=== PATIENT | male | born 1940 | race Caucasian/White ===

== ENCOUNTER → 2021-06-14 | Day surgery (SDC) | payer MEDICARE, OTHER ==
[2021-06-13 11:23] VITALS: BMI 34.4
[2021-06-14 08:54] VITALS: BP 145/76; PULSE 65; TEMP 97.6
== END | disposition home or self-care (01) ==
LOC: FASUSAT 08:26 → EDSTATUS 10:30
PROVIDERS: ATTEND Orthopaedic Surgery Orthopaedic Surgery of the Spine
PROC: 0SRC0J9 Replacement of Right Knee Joint with Synthetic Substitute, Cemented, Open Approach (ICD-10-PCS; principal; 2021-06-14)
DX: Z53.09 Procedure and treatment not carried out because of other contraindication (principal); M17.11 Unilateral primary osteoarthritis, right knee

== ENCOUNTER 2021-08-23 06:14 | Day surgery (SDC) | payer OTHER ==
[2021-08-23 06:51] VITALS: BMI 31.5
[2021-08-23] MEDS ORDERED: PROPOFOL 20 ML ONE ×4 (07:31→10:52)
[2021-08-23] MEDS ORDERED: MIDAZOLAM HCL 2 MG/2 ML SINGLE DOSE VIAL ONE (07:31)
[2021-08-23] MEDS ORDERED: BUPIVACAINE HCL 150 ML ONE (07:40)
[2021-08-23] MEDS ORDERED: BUPIVACAINE LIPOSOME/PF (EXPAREL) 266 MG/20 ML VIAL ONE (07:42)
[2021-08-23] MEDS ORDERED: BUPIVACAINE HCL 50 ML ONE (08:14)
[2021-08-23] MEDS ORDERED: PHENYLEPHRINE HCL 10 MG/1 ML SINGLE DOSE VIAL ONE (08:15)
[2021-08-23] MEDS ORDERED: DEXAMETHASONE SOD PHOSPHATE 4 MG/1 ML VIAL ONE (10:50)
[2021-08-23] MEDS ORDERED: ONDANSETRON 4 MG/2 ML VIAL ONE (10:50)
[2021-08-23] MEDS ORDERED: EPINEPHrine/PF 1 MG/1 ML (1:1,000) AMPULE ONE (10:50)
[2021-08-23] MEDS ORDERED: MAGNESIUM HYDROX 2400MG/30ML ORAL SUSPENSION 30 ML CUP PO PRN (12:05)
[2021-08-23] MEDS ORDERED: ONDANSETRON 4 MG/2 ML VIAL IVPUSH PRN ×3 (12:05→12:41)
[2021-08-23] MEDS ORDERED: MAG HYDROX/AL HYDROX/SIMETH 30 ML UNIT-DOSE CUP PO PRN (12:05)
[2021-08-23] MEDS ORDERED: LACTATED RINGERS SOLUTION 1,000 ML IV SCH (12:15)
[2021-08-23] MEDS ORDERED: oxyCODONE HCL 5 MG TABLET PO PRN (12:39)
[2021-08-23] MEDS ORDERED: ACETAMINOPHEN INJECTION 100 ML IVPB ONE (12:48)
[2021-08-23] MEDS: ACETAMINOPHEN 1000 MG/100 ML BAG IVPB ONE ×2 (13:01→14:09)
[2021-08-23] MEDS ORDERED: ceFAZolin SODIUM 1 GM VIAL ONE ×2 (17:09→22:19)
[2021-08-23] MEDS ORDERED: DEXTROSE 5%-WATER - 50 ML IVPB ONE ×2 (17:10→22:20)
[2021-08-23] MEDS: CEFAZOLIN 2 GM in DEXTROSE 5%-WATER - 50 ML IVPB SCH ×2 (17:12→22:25)
[2021-08-23] MEDS: oxyCODONE HCL 5 MG TABLET PO PRN (19:41)
[2021-08-23] MEDS: ACETAMINOPHEN 500 MG TABLET (FP) PO SCH (21:31)
[2021-08-23] MEDS: SENNOSIDES/DOCUSATE COMBO (SENNA PLUS) TABLET (UD) PO SCH (21:36)
[2021-08-23] MEDS: ENOXAPARIN NA (PORCINE) 30 MG/0.3 ML DISP.SYRIN SQ SCH (21:37)
[2021-08-23] MEDS ORDERED: traMADol HCL 50 MG TABLET PO ONE (23:49)
[2021-08-24] MEDS: ACETAMINOPHEN 500 MG TABLET (FP) PO SCH ×4 (02:16→21:08)
[2021-08-24] MEDS: oxyCODONE HCL 5 MG TABLET PO PRN ×2 (02:17→09:40)
[2021-08-24] MEDS ORDERED: DEXTROSE 5%-WATER - 50 ML IVPB ONE (05:19)
[2021-08-24] MEDS ORDERED: ceFAZolin SODIUM 1 GM VIAL ONE (05:19)
[2021-08-24] MEDS: CEFAZOLIN 2 GM in DEXTROSE 5%-WATER - 50 ML IVPB SCH (05:32)
[2021-08-24 08:14] LABS: CALCIUM 8.8 mg/dl (8.5-10); CREATININE 0.8 mg/dl (0.55-1.3)
[2021-08-24 09:27] LABS: HEMATOCRIT 32.6 % (35.4-49); HEMOGLOBIN 10.9 GM/dL (11.7-16.9); MCH 28.8 pg (25.7-33.7); MCHC 33.3 g/dl (32.0-35.9); MEAN CELL VOLUME 86.6 fl (80-96); MEAN PLT VOLUME 9.8 fl (7.5-11.1); PLATELET COUNT 163 10^3/uL (134-434); RBC 3.76 M/mm3 (4.00-5.60); RDW 14.6 % (11.9-15.9); WHITE BLOOD COUNT 8.3 K/mm3 (4.0-10.0)
[2021-08-24] MEDS: FUROSEMIDE 20 MG TABLET (FP) PO SCH (09:39)
[2021-08-24] MEDS: SENNOSIDES/DOCUSATE COMBO (SENNA PLUS) TABLET (UD) PO SCH ×2 (09:39→21:08)
[2021-08-24] MEDS: LOSARTAN POTASSIUM 50 MG TABLET PO SCH (09:40)
[2021-08-24] MEDS: ENOXAPARIN NA (PORCINE) 30 MG/0.3 ML DISP.SYRIN SQ SCH ×2 (09:40→21:12)
[2021-08-24] MEDS: PANTOPRAZOLE 40 MG TABLET PO SCH (09:40)
[2021-08-24] MEDS: amLODIPine BESYLATE 2.5 MG TABLET (FP) PO SCH (09:40)
[2021-08-24] MEDS ORDERED: PANTOPRAZOLE 40 MG TABLET PO SCH (10:00)
[2021-08-24] MEDS ORDERED: ERGOCALCIFEROL (VIT D2) 50,000 UNIT (1.25 MG) CAPSULE PO SCH (10:00)
[2021-08-24] MEDS ORDERED: amLODIPine BESYLATE 10 MG TABLET (FP) PO SCH ×2 (10:00)
[2021-08-24] MEDS ORDERED: CELECOXIB 200 MG CAPSULE PO SCH ×2 (10:00)
[2021-08-24] MEDS: TRIAMCINOLONE ACET 0.1% CREAM 15 GM TUBE TP SCH (11:23)
[2021-08-24] MEDS: ATORVASTATIN CA 20 MG TABLET (FP) PO SCH (21:08)
[2021-08-25] MEDS: ACETAMINOPHEN 500 MG TABLET (FP) PO SCH ×4 (03:00→22:02)
[2021-08-25 08:23] LABS: HEMATOCRIT 29.2 % (35.4-49); MCH 29.4 pg (25.7-33.7); MCHC 34.2 g/dl (32.0-35.9); MEAN PLT VOLUME 9.6 fl (7.5-11.1); PLATELET COUNT 142 10^3/uL (134-434); RDW 14.6 % (11.9-15.9); WHITE BLOOD COUNT 7.2 K/mm3 (4.0-10.0)
[2021-08-25] MEDS: ENOXAPARIN NA (PORCINE) 30 MG/0.3 ML DISP.SYRIN SQ SCH ×2 (09:04→22:03)
[2021-08-25] MEDS: LOSARTAN POTASSIUM 50 MG TABLET PO SCH (09:04)
[2021-08-25] MEDS: amLODIPine BESYLATE 2.5 MG TABLET (FP) PO SCH (09:05)
[2021-08-25] MEDS: FUROSEMIDE 20 MG TABLET (FP) PO SCH (09:05)
[2021-08-25] MEDS: PANTOPRAZOLE 40 MG TABLET PO SCH (09:05)
[2021-08-25] MEDS: oxyCODONE HCL 5 MG TABLET PO PRN ×2 (09:05→14:15)
[2021-08-25] MEDS: SENNOSIDES/DOCUSATE COMBO (SENNA PLUS) TABLET (UD) PO SCH ×2 (09:05→22:03)
[2021-08-25] MEDS: TRIAMCINOLONE ACET 0.1% CREAM 15 GM TUBE TP SCH (09:11)
[2021-08-25] MEDS: ATORVASTATIN CA 20 MG TABLET (FP) PO SCH (22:03)
[2021-08-26] MEDS: ACETAMINOPHEN 500 MG TABLET (FP) PO SCH ×3 (03:10→14:59)
[2021-08-26 09:58] LABS: HEMATOCRIT 27.3 % (35.4-49); HEMOGLOBIN 9.5 GM/dL (11.7-16.9); MCH 29.6 pg (25.7-33.7); MCHC 34.7 g/dl (32.0-35.9); MEAN CELL VOLUME 85.5 fl (80-96); MEAN PLT VOLUME 9.6 fl (7.5-11.1); PLATELET COUNT 145 10^3/uL (134-434); RDW 14.4 % (11.9-15.9); WHITE BLOOD COUNT 7.4 K/mm3 (4.0-10.0)
[2021-08-26] MEDS: oxyCODONE HCL 5 MG TABLET PO PRN (09:59)
[2021-08-26] MEDS: FUROSEMIDE 20 MG TABLET (FP) PO SCH (09:59)
[2021-08-26] MEDS: PANTOPRAZOLE 40 MG TABLET PO SCH (09:59)
[2021-08-26] MEDS: LOSARTAN POTASSIUM 50 MG TABLET PO SCH (10:00)
[2021-08-26] MEDS: SENNOSIDES/DOCUSATE COMBO (SENNA PLUS) TABLET (UD) PO SCH (10:00)
[2021-08-26] MEDS: amLODIPine BESYLATE 2.5 MG TABLET (FP) PO SCH (10:00)
[2021-08-26] MEDS: TRIAMCINOLONE ACET 0.1% CREAM 15 GM TUBE TP SCH (10:03)
[2021-08-26] MEDS: ENOXAPARIN NA (PORCINE) 30 MG/0.3 ML DISP.SYRIN SQ SCH (10:03)
[2021-08-26 14:39] VITALS: BP 101/57; PULSE 57; TEMP 99.2
== END 2021-08-26 16:48 | disposition home health service (06) ==
LOC: FASUSAT 06:14 → EDSTATUS 08:00 → FM/S 13:15 → FASUSAT 08-26 16:48
PROVIDERS: ATTEND Orthopaedic Surgery Orthopaedic Surgery of the Spine
PROC: 0SRC0J9 Replacement of Right Knee Joint with Synthetic Substitute, Cemented, Open Approach (ICD-10-PCS; principal; 2021-08-23 09:19)
DX: M17.11 Unilateral primary osteoarthritis, right knee (principal)
CPT/HCPCS: 27447; C1776; 36415; 73560-TC-RT-FY; 80048; 85027; 88305-TC; 88311-TC; 94760; 97010-GP; 97116-GP; 97163-GP

== ENCOUNTER 2022-03-07 06:11 | Inpatient (IN) | payer OTHER ==
[2022-03-06 10:27] VITALS: BMI 31.5
[2022-03-07] MEDS ORDERED: DEXAMETHASONE SOD PHOSPHATE/PF 10 MG/ML SDV ONE (07:19)
[2022-03-07] MEDS ORDERED: ROPIVACAINE HCL 0.5% 30ML VIAL ONE (07:19)
[2022-03-07] MEDS ORDERED: BUPIVACAINE HCL 50 ML ONE ×2 (07:22→07:33)
[2022-03-07] MEDS ORDERED: MIDAZOLAM HCL 2 MG/2 ML SINGLE DOSE VIAL ONE ×2 (07:26→08:47)
[2022-03-07] MEDS ORDERED: PROPOFOL 40 ML ONE (07:26)
[2022-03-07] MEDS ORDERED: BUPIVACAINE LIPOSOME/PF (EXPAREL) 266 MG/20 ML VIAL ONE (07:33)
[2022-03-07] MEDS ORDERED: TRANEXAMIC ACID 1000 MG/10 ML VIAL ONE ×2 (08:47→11:06)
[2022-03-07] MEDS ORDERED: DEXAMETHASONE SOD PHOSPHATE 4 MG/1 ML VIAL ONE (08:47)
[2022-03-07] MEDS ORDERED: VANCOMYCIN 1,000 MG VIAL (RESTRICTED TO ID ONLY) ONE (08:47)
[2022-03-07] MEDS ORDERED: ceFAZolin SODIUM 1 GM VIAL ONE ×2 (08:47→11:06)
[2022-03-07] MEDS ORDERED: KETOROLAC TROMETHAMINE 30 MG/1 ML VIAL ONE (08:47)
[2022-03-07] MEDS ORDERED: ONDANSETRON 4 MG/2 ML VIAL ONE (08:47)
[2022-03-07] MEDS ORDERED: ONDANSETRON 4 MG/2 ML VIAL IVPUSH PRN ×2 (11:47→12:00)
[2022-03-07] MEDS ORDERED: MAGNESIUM HYDROX 2400MG/30ML ORAL SUSPENSION 30 ML CUP PO PRN (11:47)
[2022-03-07] MEDS ORDERED: MAG HYDROX/AL HYDROX/SIMETH 30 ML UNIT-DOSE CUP PO PRN (11:47)
[2022-03-07] MEDS ORDERED: LACTATED RINGERS SOLUTION 1,000 ML IV SCH (12:00)
[2022-03-07] MEDS ORDERED: oxyCODONE HCL 5 MG TABLET PO PRN ×2 (12:00)
[2022-03-07] MEDS ORDERED: KETOROLAC TROMETHAMINE 30 MG/1 ML VIAL IVPUSH SCH (12:00)
[2022-03-07] MEDS ORDERED: ACETAMINOPHEN 1000 MG/100 ML BAG IVPB ONE (12:00)
[2022-03-07] MEDS ORDERED: ACETAMINOPHEN INJECTION 100 ML IVPB ONE (12:10)
[2022-03-07] MEDS: LACTATED RINGERS SOLUTION 1,000 ML IV SCH ×2 (16:11→16:56)
[2022-03-07] MEDS: CEFAZOLIN SODIUM 2 GM in DEXTROSE 5%-WATER 100 ML IVPB SCH ×2 (17:48→23:37)
[2022-03-07] MEDS: KETOROLAC TROMETHAMINE 30 MG/1 ML VIAL IVPUSH SCH (17:48)
[2022-03-07] MEDS: ACETAMINOPHEN 500 MG TABLET (FP) PO SCH (20:38)
[2022-03-07] MEDS: ENOXAPARIN NA (PORCINE) 30 MG/0.3 ML DISP.SYRIN SQ SCH (23:20)
[2022-03-07] MEDS: GABAPENTIN 300 MG CAPSULE PO SCH (23:37)
[2022-03-07] MEDS: oxyCODONE HCL 10 MG SUSTAINED ACTING TABLET PO SCH (23:38)
[2022-03-07] MEDS: SENNOSIDES/DOCUSATE COMBO (SENNA PLUS) TABLET (UD) PO SCH (23:38)
[2022-03-08] MEDS: ACETAMINOPHEN 500 MG TABLET (FP) PO SCH ×4 (03:09→21:03)
[2022-03-08] MEDS: KETOROLAC TROMETHAMINE 30 MG/1 ML VIAL IVPUSH SCH (03:10)
[2022-03-08] MEDS: CEFAZOLIN SODIUM 2 GM in DEXTROSE 5%-WATER 100 ML IVPB SCH (05:35)
[2022-03-08 08:16] LABS: CALCIUM 8.7 mg/dl (8.5-10)
[2022-03-08 08:23] LABS: HEMOGLOBIN 10.4 G/dL (11.7-16.9); MCH 30.3 pg (25.7-33.7); MCHC 34.8 g/dl (32.0-35.9); MEAN CELL VOLUME 87.3 fl (80-96); MEAN PLT VOLUME 9.6 fl (7.5-11.1); PLATELET COUNT 171.1 10^3/uL (134-434); RBC 3.44 10^6/uL (4.00-5.60); RDW 15.2 % (11.9-15.9); WHITE BLOOD COUNT 7.3 10^3/uL (4.0-10.8)
[2022-03-08] MEDS: PANTOPRAZOLE 40 MG TABLET PO SCH (09:37)
[2022-03-08] MEDS: oxyCODONE HCL 10 MG SUSTAINED ACTING TABLET PO SCH ×2 (09:37→21:04)
[2022-03-08] MEDS: ENOXAPARIN NA (PORCINE) 30 MG/0.3 ML DISP.SYRIN SQ SCH ×2 (09:37→20:59)
[2022-03-08] MEDS: GABAPENTIN 300 MG CAPSULE PO SCH ×2 (09:37→20:59)
[2022-03-08] MEDS: FUROSEMIDE 20 MG TABLET (FP) PO SCH (09:37)
[2022-03-08] MEDS: amLODIPine BESYLATE 5 MG TABLET (FP) PO SCH (09:38)
[2022-03-08] MEDS: SENNOSIDES/DOCUSATE COMBO (SENNA PLUS) TABLET (UD) PO SCH ×2 (09:38→21:03)
[2022-03-08] MEDS: LOSARTAN POTASSIUM 50 MG TABLET PO SCH (09:38)
[2022-03-08] MEDS: CHOLECALCIFEROL (VIT D3 5000 UNITS) 125 MCG TAB PO SCH (09:39)
[2022-03-08] MEDS: ATORVASTATIN CA 20 MG TABLET (FP) PO SCH (21:01)
[2022-03-09] MEDS: ACETAMINOPHEN 500 MG TABLET (FP) PO SCH ×4 (03:00→21:06)
[2022-03-09 08:36] LABS: ALBUMIN 2.7 g/dl (3.4-5.0); BILIRUBIN,TOTAL 1.3 mg/dl (0.2-1); CALCIUM 8.3 mg/dl (8.5-10); CREATININE 0.8 mg/dl (0.55-1.3); TOT PROT 5.3 g/dl (6.4-8.2)
[2022-03-09] MEDS: SENNOSIDES/DOCUSATE COMBO (SENNA PLUS) TABLET (UD) PO SCH ×2 (09:35→21:07)
[2022-03-09] MEDS: FUROSEMIDE 20 MG TABLET (FP) PO SCH (09:36)
[2022-03-09] MEDS: PANTOPRAZOLE 40 MG TABLET PO SCH (09:38)
[2022-03-09] MEDS: GABAPENTIN 300 MG CAPSULE PO SCH ×2 (09:38→21:06)
[2022-03-09] MEDS: ENOXAPARIN NA (PORCINE) 30 MG/0.3 ML DISP.SYRIN SQ SCH ×2 (09:38→21:07)
[2022-03-09] MEDS: LOSARTAN POTASSIUM 50 MG TABLET PO SCH (09:41)
[2022-03-09] MEDS: amLODIPine BESYLATE 5 MG TABLET (FP) PO SCH (09:41)
[2022-03-09] MEDS: CHOLECALCIFEROL (VIT D3 5000 UNITS) 125 MCG TAB PO SCH (09:44)
[2022-03-09] MEDS: oxyCODONE HCL 10 MG SUSTAINED ACTING TABLET PO SCH ×2 (09:52→21:07)
[2022-03-09 10:30] LABS: BASO % 0.4 % (0-2.0); EOS % 5.2 % (0-4.5); HEMATOCRIT 26.3 % (35.4-49); HEMOGLOBIN 8.7 GM/dL (11.7-16.9); LYMPH % 7.6 % (8-40); MCH 28.4 pg (25.7-33.7); MCHC 33.3 g/dl (32.0-35.9); MEAN CELL VOLUME 85.3 fl (80-96); MEAN PLT VOLUME 10.1 fl (7.5-11.1); MONO % 10.4 % (3.8-10.2); NEUT % 76.4 % (42.8-82.8); PLATELET COUNT 153 10^3/uL (134-434); RBC 3.08 M/mm3 (4.00-5.60); RDW 15.5 % (11.9-15.9); WHITE BLOOD COUNT 7.2 K/mm3 (4.0-10.0)
[2022-03-09] MEDS: ATORVASTATIN CA 20 MG TABLET (FP) PO SCH (21:06)
[2022-03-10] MEDS: ACETAMINOPHEN 500 MG TABLET (FP) PO SCH ×2 (03:50→09:47)
[2022-03-10] MEDS: ENOXAPARIN NA (PORCINE) 30 MG/0.3 ML DISP.SYRIN SQ SCH (09:45)
[2022-03-10 09:46] LABS: HEMATOCRIT 26.5 % (35.4-49); HEMOGLOBIN 9.1 G/dL (11.7-16.9); MCH 29.8 pg (25.7-33.7); MCHC 34.2 g/dl (32.0-35.9); MEAN CELL VOLUME 87.1 fl (80-96); MEAN PLT VOLUME 9.4 fl (7.5-11.1); PLATELET COUNT 168.5 10^3/uL (134-434); RBC 3.04 10^6/uL (4.00-5.60); WHITE BLOOD COUNT 7.5 10^3/uL (4.0-10.8)
[2022-03-10] MEDS: SENNOSIDES/DOCUSATE COMBO (SENNA PLUS) TABLET (UD) PO SCH (09:46)
[2022-03-10] MEDS: CHOLECALCIFEROL (VIT D3 5000 UNITS) 125 MCG TAB PO SCH (09:46)
[2022-03-10] MEDS: GABAPENTIN 300 MG CAPSULE PO SCH (09:47)
[2022-03-10] MEDS: PANTOPRAZOLE 40 MG TABLET PO SCH (09:49)
[2022-03-10] MEDS ORDERED: POTASSIUM CHLORIDE TABS 20 MEQ TABLET.ER (FP) PO ONE (09:58)
[2022-03-10 10:46] VITALS: RESP 14; TEMP 98.8
[2022-03-10 10:52] VITALS: BP 114/58; PULSE 61
[2022-03-10] MEDS: LOSARTAN POTASSIUM 50 MG TABLET PO SCH (10:59)
[2022-03-10] MEDS: oxyCODONE HCL 10 MG SUSTAINED ACTING TABLET PO SCH (10:59)
[2022-03-10] MEDS: FUROSEMIDE 20 MG TABLET (FP) PO SCH (10:59)
[2022-03-10] MEDS: amLODIPine BESYLATE 5 MG TABLET (FP) PO SCH (10:59)
== END 2022-03-10 12:49 | disposition home or self-care (01) | DRG 470 ==
LOC: FASUSAT 06:11 → FM/S 11:47
PROVIDERS: ADMIT Orthopaedic Surgery Orthopaedic Surgery of the Spine; ATTEND Orthopaedic Surgery Orthopaedic Surgery of the Spine
PROC: 0SRD0J9 Replacement of Left Knee Joint with Synthetic Substitute, Cemented, Open Approach (ICD-10-PCS; principal; 2022-03-07 08:52)
DX: M17.12 Unilateral primary osteoarthritis, left knee (principal); I69.351 Hemiplegia and hemiparesis following cerebral infarction affecting right dominant side; I10 Essential (primary) hypertension; E78.5 Hyperlipidemia, unspecified; Z85.46 Personal history of malignant neoplasm of prostate
CPT/HCPCS: 36415; 73560-TC-LT-FY; 80048; 80053; 84132; 85025; 85027; 88305-TC; 88311-TC; 94760; 97010-GP; 97116-GP; 97162-GP; C1713; C1776; C1889